=== PATIENT | female | born 1975 | race Hispanic/Latino ===

== ENCOUNTER 2016-07-07 09:22 | Emergency (ER) | payer OTHER ==
[~2016-07-07] VITALS: Ht 162.6 cm; Wt 88.9 kg
[~2016-07-07 09:22] MED LIST: DUEXIS 26.6 MG-1 TAB PO; GOOD SENSE IBU200 MG PO; PERCOCET 325 MG1 TA2 PO; ULTRAM(MONOGRAP50 MG PO; VALIUM5 M1 PO; VOLTAREN75 MG PO
[2016-07-07 09:28] VITALS: BP 133/86
--- NOTE | 2016-07-07 09:47 | ED INFLUENZA/URI COMPLAINT ---
History of Present Illness General Chief Complaint: Nausea, Vomiting, Diarrhea Stated Complaint: BACK PAIN X 7 DAYS, NV, CONGESTION Source: patient, old records Exam Limitations: no limitations Vital Signs & Intake/Output Vital Signs & Intake/Output Vital Signs Date Time Temp Pulse Resp B/P Pulse O2 O2 Flow FiO2 Ox Delivery Rate 07/07 0928 97.4 80 20 133/86 100 Room Air ED Intake and Output 07/08 0000 07/07 1200 Intake Total Output Total Balance Patient 196 lb Weight Allergies Coded Allergies: NO KNOWN ALLERGIES (11/20/14) Reconcile Medications Ondansetron (Zofran Odt) 4 MG TAB.RAPDIS 1 TAB SL TID PRN nausea Oseltamivir Phosphate (Tamiflu) 75 MG CAPSULE 1 CAP PO BID viral Triage Note: PT TO ED C/O FEVER, BACK PAIN, NAUSEA X 7 DAYS. THIS AM STARTED WITH URI S/S. AFEBRILE NOW. Triage Nurses Notes Reviewed? yes Onset: Abrupt Duration: week(s): (1), constant Timing: recent history Severity: moderate Severity Numbers: 5 No Modifying Factors: none Associated Symptoms: n/v : No Patient currently breastfeeds: No HPI: 40-year-old female with no medical history presents to emergency room complaining of generalized body aches subjective fever nausea and vomiting 1 yesterday associated with a nonproductive cough sore throat and bilateral ear pain since today. She reports both of her parents were recently positive for the flu last week. She has not taken anything for her symptoms. She denies any abdominal pain nausea or vomiting today. She denies any diarrhea. Her last menstrual cycle began today which was normal for her. No recent travel no rashes or skin no chest pain or shortness of breath she does not smoke. She denies any urinary complaints (LISS CRUZ) Past History Travel History Traveled to [place] past 21 day No Medical History Any Pertinent Medical History? none Other Medical Hx: Right knee patellofemoral syndrome, right knee pain Surgical History Surgical History: RIGHT KNEE SURGERY BUNION SURGERY Psychosocial History What is your primary language Korean Tobacco Use: Current Daily Use Daily Tobacco Use Amount/Type: => 5 Cigarettes daily ETOH Use: denies use Illicit Drug Use: denies illicit drug use Family History Hx Contributory? No (LISS CRUZ) Review of Systems Review of Systems Constitutional: Reports: see HPI. All Other Systems: Reviewed and Negative Comments Review of systems: See HPI, All other systems negative. Constitutional, no chills fever, no malaise HEENT: No visual changes sore throat no congestion Cardiovascular: No chest pain , no palpitation Skin, no jaundice no rashes, no change in skin Respiratory: No dyspnea no cough no sputum no hemoptysis GI: nausea vomiting, no diarrhea : No dysuria No hematuria, Muscle skeletal: No joint pain, no back pain, no neck pain, Neurologic: No numbness, no headache Psych: No stress Heme/endocrine: No bruising no bleeding Immunology: No lymphadenopathy (LISS CRUZ) Physical Exam Physical Exam General Appearance: well developed/nourished, no apparent distress, alert, awake , comfortable Ears, Nose, Throat: normal ENT inspection Comments: Well-developed well-nourished person in no acute distress Head/Face: Atraumatic, no maxillary/frontal sinus tenderness, no facial swelling Eyes: PERRL, EOMI, no conjunctival injection Ear:External auditory canal and Tympanic membranes clear, no erythema, no FB. Nose: atraumatic.Normal inspection: No bleeding, no septal hematoma Throat: Moist mucous membranes.Pharynx normal. No pharyngeal erythema/exudate seen. No stridor/drooling or assymetry. No swelling or edema. Neck: Supple, no lymphadenopathy, FROM Back: Nontender, no CVA tenderness. Full range of motion Cardiovascular: Regular rate and rhythms no murmurs rubs Respiratory: Chest nontender.There were no bony deformities, No respiratory distress. Patient speaking in full complete sentences. Breath sounds clear to auscultation bilaterally: NO W/R/R Abdomen: Soft, nontender nondistended, no appreciable organomegaly. Normal bowel sounds. No rebound/guarding, Extremity: No edema, full range of motion of extremities, normal and equal pulses bilaterally, 5 out of 5 strength noted to bilateral upper and lower extremities Neuro: Alert oriented x3, motor sensory normal,. There were no obvious focal neurologic abnormalities. Skin: No appreciable rash on exposed skin, skin is warm and dry. Psych: Mood and affect is normal, memory and judgment is normal. Core Measures Severe Sepsis Present: No Septic Shock Present: No (LISS CRUZ) Progress Differential Diagnosis: influenza, otitis, pneumonia, pharyngitis, sinusitis, obstruction, iup, ectopic, pyelo, uti, appy Plan of Care: Orders Procedure Date/time Status RAPID VIRAL INFLUENZA A 07/07 953 Complete Patient clinically appears well medicated with ibuprofen Zofran, flu swab sent Discussed with the patient her Fusaro results given multiple sick contacts with similar symptoms prescription for Tamiflu Zofran were provided advised bland diet clear liquids advance as tolerated Tylenol or Motrin as needed. She clinically appears well she feels, "this plan and she will return at anytime sooner if symptoms worsen or she has any other concerns (LISS CRUZ) Initial ED EKG: none (LISS CRUZ) Departure Departure Time of Disposition: 1038 Disposition: HOME OR SELF CARE Condition: Stable Clinical Impression Primary Impression: Viral syndrome Referrals: NEFTALI YOU MD (PCP/Family) Additional Instructions: Tamiflu as directed Zofran if needed for nausea. Drink plenty of fluids Tylenol Motrin every 4-6 hours. These prescriptions were sent to [facility]. Follow up with her primary care physician this week Departure Forms: Customer Survey General Discharge Information Prescriptions: Current Visit Scripts Oseltamivir Phosphate (Tamiflu) 1 CAP PO BID #10 CAP Ondansetron (Zofran Odt) 1 TAB SL TID PRN nausea #10 TAB (LISS CRUZ) PA/HAND PAINT MIXER Co-Sign Statement Statement: ED Attending supervision documentation- [] I saw and evaluated the patient. I have also reviewed all the pertinent lab results and diagnostic results. I agree with the findings and the plan of care as documented in the PA's/HAND PAINT MIXER's documentation. [X] I have reviewed the ED Record and agree with the PA's/HAND PAINT MIXER's documentation. [] Additions or exceptions (if any) to the PAs/HAND PAINT MIXER's note and plan are summarized below: [] (KAELA BYERS,SHIRA)
[2016-07-07] MEDS ORDERED: TAMIFLU75 M1 PO (10:39)
[2016-07-07] MEDS ORDERED: ZOFRAN ODT4 M1 SL (10:39)
== END 2016-07-07 10:38 ==
LOC: ERH 09:22
DX: B34.9 Viral infection, unspecified (principal); R11.2 Nausea with vomiting, unspecified
CPT/HCPCS: 87804; 87804-59; J3101

== ENCOUNTER 2016-07-30 21:19 | Emergency (ER) | payer OTHER ==
[~2016-07-30 21:19] MED LIST changes: +TAMIFLU75 M1 PO; +ZOFRAN ODT4 M1 SL
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
[2016-07-30] MEDS ORDERED: TRAMADOL HCL50 M1 PO ×2 (23:13→23:16)
[2016-07-30] MEDS ORDERED: IBUPROFEN800 M1 PO ×2 (23:13→23:16)
[2016-07-30] MEDS ORDERED: MEDROL4 M2 PO ×2 (23:13→23:16)
[2016-07-30] MEDS ORDERED: CYCLOBENZAPRINE10 M1 PO ×2 (23:13→23:16)
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
[2016-07-31 00:09] VITALS: BP 116/63
== END 2016-07-31 00:09 ==
LOC: ERH 21:19
DX: M54.5 Low back pain (principal); R52 Pain, unspecified
CPT/HCPCS: 72100; 96372; J1100; J1885; J3360